=== PATIENT | male | born 1960 | race Caucasian/White ===

== ENCOUNTER → 2020-03-25 | Outpatient (CLI) | payer OTHER ==
--- NOTE | 2020-03-25 11:44 | 2DMMODE ---
[facility] [place] [address] 2 D/M-MODE ECHOCARDIOGRAM Name: ISABELROLANDA SAM [id number] Ad[facility]: 03/25/20 Attend Phys: Cornelio Lyons MD Discharge: Date of : 62 Report #: [id number] THIS REPORT FOR: cc: Joni Thompson Alan Z. DO Santiago, Patrick MD [facility] ~ APPROVED REPORT Study performed: 03/25/2020 11:12:05 EXAM: Comprehensive 2D, Doppler, and color-flow Echocardiogram Patient Location: Out-Patient Status: routine BSA: 2.35 HR: 77 bpm BP: 122/74 mmHg Rhythm: NSR Other Information Study Quality: Adequate Risk Factors: Cardiac Risk Factors: HTN, Hyperlipidemia, DM, obesity. Indications Dyspnea 2D Dimensions RVDd: 36.58 mm IVSd: 11.06 (7-11mm) LVOT Diam: 24.82 (18-24mm) LVDd: 54.29 mm PWd: 11.05 (7-11mm) Ascending Ao: 37.62 (22-36mm) LVDs: 39.04 (25-40mm) Aortic Root: 40.20 mm Volumes Left Atrial Volume (Systole) Single Plane 4CH: 47.01 mL Single Plane 2CH: 64.44 mL LA ESV Index: 25.00 mL/m2 Aortic Valve AoV Peak Rakesh.: 2.06 m/s [facility] [address] [place] [address] 2 D/M-MODE ECHOCARDIOGRAM Name: GILBERTOLESLYDEONNAROLANDAAVINASH KAPLANARD Room #: REG [id number] Admission: 03/25/20 Attend Phys: Cristine Alarcon Discharge: Date of : 62 Report #: [id number] AO Peak Gr.: 17.05 mmHg LVOT Max P.63 mmHg LVOT Max V: 1.55 m/s KHLOE Vmax: 3.63 cm2 Mitral Valve E/A Ratio: 1.4 MV Decel. Time: 213.03 ms MV E Max Rakesh.: 0.81 m/s MV A Rakesh.: 0.60 m/s MV PHT: 61.78 ms IVRT: 76.12 ms Pulmonary Valve PV Peak Rakesh.: 0.80 m/s PV Peak Gr.: 2.57 mmHg Pulmonary Vein P Vein S: 0.88 m/s P Vein A: 0.27 m/s P Vein D: 0.50 m/s P Vein A Dur.: 110.7 msec P Vein S/D Ratio: 1.76 Tricuspid Valve TR Peak Rakesh.: 2.44 m/s RAP Estimate: 5.00 mmHg TR Peak Gr.: 24.00 mmHg PA Pressure: 29.00 mmHg Left Ventricle The left ventricle is normal size. There is normal LV segmental wall motion. There is normal left ventricular wall thickness. Left ventricular systolic function is normal. LVEF is 55-60%. Moderate diastolic dysfunction is present. Right Ventricle The right ventricle is normal size. The right ventricular systolic function is normal. Atria The left atrium size is normal. The right atrium size is normal. Aortic Valve The aortic valve is normal in structure. No aortic regurgitation is present. There is no aortic valvular stenosis. Mitral Valve The mitral valve is normal in structure. Trace mitral regurgitation. [facility] [place] [address] 2 D/M-MODE ECHOCARDIOGRAM Name: ROLANDA HALL Room #: REG [facility]#: [id number] Admission: 03/25/20 Attend Phys: Cristine Alarcon Discharge: Date of : 62 Report #: [id number] Tricuspid Valve The tricuspid valve is normal in structure. Trace tricuspid regurgitation. Estimated PAP is 29mmHg. Pulmonic Valve The pulmonary valve is normal in structure. Trace pulmonic regurgitation. Great Vessels Aortic root is mildly dilated (4.0cm). The ascending aorta is borderline dilated. IVC is normal in size and collapses >50% with inspiration. <Conclusion> Normal left ventricular size/wall thickness Ejection fraction 55% Normal right ventricular size/wall thickness Normal atrial size Normal aortic/mitral valve structure and function Color-flow Doppler study was performed of the aortic/mitral/tricuspid/pulmonary valve Trace tricuspid valve insufficiency Pulmonary systolic pressure estimated 29 mmHg No pericardial effusion Mildly dilated aortic root estimated at 4 cm in diameter <ELECTRONICALLY SIGNED> By: John Washburn MD, FACC 03/25/20 1144 1144 1144 John Washburn MD, FACC /INF
== END ==
LOC: CV 09:40
PROVIDERS: ATTEND Pediatrics
DX: R06.02 Shortness of breath (principal); G47.33 Obstructive sleep apnea (adult) (pediatric); R06.00 Dyspnea, unspecified

== ENCOUNTER → 2020-12-15 | Outpatient (CLI) | payer OTHER | LOC: SJCVCIMAG 10:53 | PROVIDERS: ATTEND Nuclear Medicine Nuclear Cardiology | DX: I73.9 Peripheral vascular disease, unspecified (principal); M79.605 Pain in left leg; M79.604 Pain in right leg; I10 Essential (primary) hypertension; G47.33 Obstructive sleep apnea (adult) (pediatric); Z72.89 Other problems related to lifestyle; Z79.84 Long term (current) use of oral hypoglycemic drugs; Z79.899 Other long term (current) drug therapy ==

== ENCOUNTER → 2020-12-15 | Outpatient (CLI) | payer OTHER | LOC: CAT 16:05 | PROVIDERS: ATTEND Nuclear Medicine Nuclear Cardiology | DX: Z13.6 Encounter for screening for cardiovascular disorders (principal) ==